=== PATIENT | male | born 1950 | race Asian ===

== ENCOUNTER → 2017-03-28 | Outpatient (CLI) | payer MEDICARE, OTHER | END | disposition home or self-care (01) | LOC: RADPV 11:28 | PROVIDERS: ATTEND Internal Medicine Nephrology | DX: Z01.89 Encounter for other specified special examinations (principal); I70.0 Atherosclerosis of aorta | CPT/HCPCS: 71020 ==

== ENCOUNTER 2017-05-24 08:12 | Emergency (ER) | payer MEDICARE, OTHER ==
[~2017-05-24] VITALS: Ht 165.1 cm; Wt 58.6 kg
[2017-05-24] MEDS ORDERED: PRED20 PO (08:23)
[2017-05-24] MEDS ORDERED: ASPI81 PO (08:23)
[2017-05-24] MEDS ORDERED: DOXA2TAB PO (08:23)
[2017-05-24] MEDS ORDERED: RANO500T3 PO (08:23)
[2017-05-24] MEDS ORDERED: ALLO100T PO (08:23)
[2017-05-24] MEDS ORDERED: HYDR10TA31 PO (08:23)
[2017-05-24] MEDS ORDERED: AMLO-512 PO (08:23)
[2017-05-24] MEDS ORDERED: OMEP20 PO (08:23)
[2017-05-24] MEDS ORDERED: ATEN100T PO (08:23)
[2017-05-24] MEDS ORDERED: ATOR40TA28 PO (08:23)
[2017-05-24] MEDS ORDERED: VITAD1000 PO (08:23)
[2017-05-24 08:27] LABS: GLUCOSE,POINT OF CARE 127 MG/DL (70-110)
[2017-05-24 09:38] LABS: BASOPHILS # (AUTO) 0.01 K/uL (0.00-0.20); BASOPHILS % (AUTO) 0.1 % (0.0-2.0); EOSINOPHILS # (AUTO) 0.01 K/uL (0.00-0.70); EOSINOPHILS % (AUTO) 0.11 % (1.0-6.0); HEMATOCRIT 30.7 % (41-53); HEMOGLOBIN 10.1 g/dL (13.5-17.5); LYMPHOCYTES # (AUTO) 0.8 K/uL (1.0-4.8); MEAN CORPUSCULAR HEMOGLOBIN 33.6 pg (26.0-34.0); MEAN CORPUSCULAR HGB CONC 32.9 G/dL (31.0-37.0); MEAN CORPUSCULAR VOLUME 102 fL (80-100); MONOCYTES # (AUTO) 0.3 K/uL (0.1-1.0); NEUTROPHILS # (AUTO) 8.5 K/uL (1.8-7.7); PLATELET COUNT (AUTO) 96 K/uL (150-450); RED BLOOD CELL COUNT(AUTO) 3.01 MIL/uL (4.50-5.90); RED CELL DISTRIBUTION WIDTH 19.1 % (11.5-14.5)
[2017-05-24 09:39] LABS: NEUTROPHILS % (AUTO) 88.8 % (40.0-70.0)
[2017-05-24] MEDS ORDERED: ACETAMINOPHEN 500 MG TABLET PO ONE (09:45)
[2017-05-24 09:48] LABS: CALCIUM, TOTAL 8.4 mg/dL (8.8-10.5); CREATININE 2.69 mg/dL (0.60-1.30); POTASSIUM 4.9 mmol/L (3.5-5.1)
[2017-05-24 09:49] LABS: PROTHROMBIN TIME 10.3 SEC (9.4-11.6)
[2017-05-24 09:56] LABS: ALBUMIN 2.8 g/dL (3.4-5.0); BILIRUBIN,TOTAL 0.5 mg/dL (0.1-1.0); TOTAL PROTEIN, SERUM 5.6 g/dL (6.4-8.2)
[2017-05-24 10:13] LABS: BILIRUBIN,URINE NEGATIVE (NEGATIVE); GLUCOSE, URINE (UA) NEGATIVE (NEGATIVE); KETONES,URINE NEGATIVE (NEGATIVE); LEUKOCYTE ESTERASE ,URINE TRACE (NEGATIVE); NITRATE,URINE NEGATIVE (NEGATIVE); OCCULT BLOOD,URINE NEGATIVE (NEGATIVE); PH,URINE 5.5 (5.0-8.0); PROTEIN,URINE SEE CONFIRM (NEGATIVE); UROBILINOGEN,URINE 0.2 mg/dL (<=1.0)
[2017-05-24 10:16] LABS: APPEARANCE,URINE HAZY (CLEAR)
[2017-05-24 10:17] LABS: BACTERIA,URINE Few /HPF (None Seen); RBC,URINE None Seen /HPF (0-2); SULFOSALICYLIC ACID,URINE 3+ (Negative)
[2017-05-24 10:18] LABS: SQUAMOUS EPITHELIAL CELL,UR Rare /LPF (None Seen)
[2017-05-24] MEDS ORDERED: CIPROFLOXACIN HCL 250 MG TABLET PO ONE (12:45)
[2017-05-24 13:53] VITALS: BP 168/75
[2017-08-11] MEDS ORDERED: CEFX1I IM (16:15)
[2017-08-11] MEDS ORDERED: DSS100 PO (16:16)
[2017-08-11] MEDS ORDERED: LEVE250T55 PO (16:17)
[2017-08-11] MEDS ORDERED: LUBI24CA2 PO (16:17)
[2017-08-11] MEDS ORDERED: EPOE10I SQ (16:17)
[2017-08-11] MEDS ORDERED: FOLI1CAP2 PO (16:19)
== END 2017-05-24 13:56 | disposition home or self-care (01) ==
LOC: EMS 08:14
DX: S00.03XA Contusion of scalp, initial encounter (principal); S70.02XA Contusion of left hip, initial encounter; S40.812A Abrasion of left upper arm, initial encounter; N39.0 Urinary tract infection, site not specified; E11.9 Type 2 diabetes mellitus without complications; E78.00 Pure hypercholesterolemia, unspecified; I10 Essential (primary) hypertension; Z87.891 Personal history of nicotine dependence; W19.XXXA Unspecified fall, initial encounter; Y93.89 Activity, other specified; Y92.89 Other specified places as the place of occurrence of the external cause; Y99.8 Other external cause status
CPT/HCPCS: 70450; 73503; 82962; 87086; 93005; 99285

== ENCOUNTER → 2017-07-12 | Outpatient (CLI) | payer MEDICARE, OTHER ==
[~2017-07-12] MED LIST: ALLO100T PO; AMLO-512 PO; ASPI81 PO; ATEN100T PO; ATOR40TA28 PO; AZIT250T9 PO; BISA5TAB12 PO; CEFX1I IM; DIPH25 PO; DOXA2TAB PO; DSS100 PO; EPOE10I SQ; FERR-89 PO; FOLI0.8T22 PO; FOLI1CAP2 PO; HYDR-2924 PO; HYDR10TA31 PO; LEVE250T55 PO; LEVE500T53 PO; LUBI24CA2 PO; OMEP20 PO; PANT40TA25 PO; PRED20 PO; RANO500T3 PO; VITAD1000 PO
[2017-07-12 13:00] LABS: ABG A-A DIFF O2 32.5 mmHg (10-20.0); ABG BASE EXCESS -10.1 mmol/L (-2.0-3.0); ABG HCO3 17.9 mmol/L (22.0-26.0); ABG OXYHEMOGLOBIN 95.4 % (94.0-100.0); ABG PCO2 21 mmHg (35-45); ABG PH 7.439 (7.35-7.450); TEMPERATURE, FAHRENHEIT, BG 98.6 FAHREN (96.0-98.6)
[2017-07-12 13:01] LABS: ALLEN TEST, BLOOD GAS Positive
== END | disposition home or self-care (01) ==
LOC: RESP 12:30
PROVIDERS: ATTEND Internal Medicine Pulmonary Disease
DX: R06.00 Dyspnea, unspecified (principal)
CPT/HCPCS: 82805

== ENCOUNTER 2017-07-14 13:20 | Inpatient (IN) | payer MEDICARE, OTHER ==
[~2017-07-14] VITALS: Ht 165.1 cm; Wt 62.5 kg
[~2017-07-14 13:20] MED LIST changes: -AZIT250T9 PO; -BISA5TAB12 PO; -CEFX1I IM; -DIPH25 PO; -DSS100 PO; -EPOE10I SQ; -FERR-89 PO; -FOLI0.8T22 PO; -FOLI1CAP2 PO; -HYDR-2924 PO; -LEVE250T55 PO; -LEVE500T53 PO; -LUBI24CA2 PO; -PANT40TA25 PO
[2017-07-14] MEDS ORDERED: AZIT250T9 PO (13:49)
[2017-07-14 14:22] LABS: EOSINOPHILS % (AUTO) 0.05 % (1.0-6.0); HEMATOCRIT 35.7 % (41-53); HEMOGLOBIN 12.1 g/dL (13.5-17.5); LYMPHOCYTES # (AUTO) 0.5 K/uL (1.0-4.8); LYMPHOCYTES % (AUTO) 7.4 % (22.0-44.0); MEAN CORPUSCULAR HEMOGLOBIN 33.3 pg (26.0-34.0); MEAN CORPUSCULAR HGB CONC 33.8 G/dL (31.0-37.0); MEAN CORPUSCULAR VOLUME 98 fL (80-100); MONOCYTES # (AUTO) 0.2 K/uL (0.1-1.0); MONOCYTES % (AUTO) 2.4 % (2.0-9.0); NEUTROPHILS # (AUTO) 6.4 K/uL (1.8-7.7); PLATELET COUNT (AUTO) 127 K/uL (150-450); RED BLOOD CELL COUNT(AUTO) 3.62 MIL/uL (4.50-5.90); RED CELL DISTRIBUTION WIDTH 18.8 % (11.5-14.5); WHITE BLOOD COUNT (AUTO) 7.1 K/uL (4.5-11.0)
[2017-07-14 14:25] LABS: NEUTROPHILS % (AUTO) 90.1 % (40.0-70.0)
[2017-07-14 14:33] LABS: CALCIUM, TOTAL 8.4 mg/dL (8.8-10.5); CREATININE 3.44 mg/dL (0.60-1.30); POTASSIUM 5.5 mmol/L (3.5-5.1)
[2017-07-14 14:39] LABS: RBC MORPHOLOGY COMMENT ABNORMAL RBC MORPH
[2017-07-14 14:41] LABS: ALBUMIN 3.2 g/dL (3.4-5.0); BILIRUBIN,TOTAL 0.5 mg/dL (0.1-1.0); TOTAL PROTEIN, SERUM 5.9 g/dL (6.4-8.2)
[2017-07-14] MEDS ORDERED: SODIUM PHOS/SODIUM BIPHOS 133 ML ENEMA PR ONE ×2 (17:45→19:15)
[2017-07-14] MEDS ORDERED: ACETAMINOPHEN 325 MG TABLET PO PRN (19:30)
[2017-07-14] MEDS ORDERED: ONDANSETRON HCL 4 MG/2 ML VIAL IVP PRN (19:30)
[2017-07-14] MEDS ORDERED: 0.9% SODIUM CHLORIDE 10 ML SYRINGE IVP PRN (19:30)
[2017-07-14 21:49] VITALS: BP 159/74
[2017-07-15] VITALS (7 sets, daily range): BP systolic 141–167; BP diastolic 58–71
[2017-07-15] MEDS ORDERED: MORPHINE SULFATE 2 MG/ML SYRINGE IVP PRN
[2017-07-15] MEDS ORDERED: HYDROCODONE/ACETAMINOPHEN 5-325 MG TABLET PO PRN
[2017-07-15] MEDS ORDERED: NITROGLYCERIN 0.4 MG SUBLINGUAL TABLET #25 SL PRN
[2017-07-15] MEDS ORDERED: LABETALOL HCL 5 MG/ML 20 ML VIAL IVP PRN
[2017-07-15] MEDS ORDERED: ALBUTEROL SULFATE 2.5 MG/0.5 ML NEB SOLUTION NEB PRN
[2017-07-15] MEDS ORDERED: IPRATROPIUM BROMIDE 0.5 MG/2.5 ML NEB SOLUTION NEB PRN
[2017-07-15] MEDS ORDERED: ONDANSETRON HCL 4 MG/2 ML VIAL IVP PRN
[2017-07-15] MEDS ORDERED: ZOLPIDEM TARTRATE 5 MG TABLET PO PRN
[2017-07-15] MEDS ORDERED: MAGNESIUM HYDROXIDE SUSPENSION 30 ML UDCUP PO PRN
[2017-07-15] MEDS ORDERED: ACETAMINOPHEN 325 MG TABLET PO PRN
[2017-07-15] MEDS: HEPARIN SODIUM,PORCINE 5,000 UNITS/ML VIAL SQ SCH ×3 (00:31→20:49)
[2017-07-15] MEDS ORDERED: SODIUM BICARBONATE 75 MEQ in SODIUM CHLORIDE 0.45% 1,000 ML IV ONE (07:45)
[2017-07-15] MEDS: HydrALAZINE HCL 50 MG TABLET PO SCH ×3 (09:30→20:48)
[2017-07-15] MEDS: PANTOPRAZOLE SODIUM 40 MG DR TABLET PO SCH (09:31)
[2017-07-15] MEDS: RANOLAZINE 500 MG SR TABLET PO SCH ×2 (09:31→20:48)
[2017-07-15] MEDS: ASPIRIN 81 MG CHEWABLE TABLET PO SCH (09:31)
[2017-07-15] MEDS: ALLOPURINOL 300 MG TABLET PO SCH (09:32)
[2017-07-15] MEDS: CHOLECALCIFEROL (VIT D3) 1,000 UNITS TABLET PO SCH (09:33)
[2017-07-15] MEDS ORDERED: SODIUM POLYSTYRENE SULFONATE 15 GM/60 ML SUSPENSION BOTTLE PO ONE (11:30)
[2017-07-15 16:21] LABS: INFLUENZA TYPE B NEGATIVE FOR TYPE B (NEGATIVE)
[2017-07-15] MEDS: DOXAZOSIN MESYLATE 2 MG TABLET PO SCH (20:48)
[2017-07-15] MEDS: ATENOLOL 100 MG TABLET PO SCH (20:48)
[2017-07-15] MEDS: ATORVASTATIN CALCIUM 40 MG TABLET PO SCH (20:49)
[2017-07-16 05:03] VITALS: BP 169/57
[2017-07-16 08:33] VITALS: BP 141/64
[2017-07-16 08:35] LABS: CALCIUM, TOTAL 7.5 mg/dL (8.8-10.5); CREATININE 2.86 mg/dL (0.60-1.30); PHOSPHORUS 4.4 mg/dL (2.5-4.9); POTASSIUM 3.1 mmol/L (3.5-5.1)
[2017-07-16] MEDS: ASPIRIN 81 MG CHEWABLE TABLET PO SCH (08:56)
[2017-07-16] MEDS: PANTOPRAZOLE SODIUM 40 MG DR TABLET PO SCH (08:57)
[2017-07-16] MEDS: ALLOPURINOL 300 MG TABLET PO SCH (08:57)
[2017-07-16] MEDS: HydrALAZINE HCL 50 MG TABLET PO SCH ×3 (08:57→20:23)
[2017-07-16] MEDS: CHOLECALCIFEROL (VIT D3) 1,000 UNITS TABLET PO SCH (08:57)
[2017-07-16] MEDS: HEPARIN SODIUM,PORCINE 5,000 UNITS/ML VIAL SQ SCH ×2 (08:58→20:22)
[2017-07-16] MEDS: RANOLAZINE 500 MG SR TABLET PO SCH ×2 (08:58→20:22)
[2017-07-16] MEDS ORDERED: POTASSIUM CHLORIDE 20 MEQ ER TABLET PO ONE (10:30)
[2017-07-16] MEDS ORDERED: SODIUM BICARBONATE 75 MEQ in SODIUM CHLORIDE 0.45% 1,000 ML IV ONE (11:00)
[2017-07-16 11:10] VITALS: BP 137/45
[2017-07-16 15:23] VITALS: BP 142/69
[2017-07-16] MEDS: ATORVASTATIN CALCIUM 40 MG TABLET PO SCH (20:22)
[2017-07-16] MEDS: DOXAZOSIN MESYLATE 2 MG TABLET PO SCH (20:23)
[2017-07-16] MEDS: ATENOLOL 100 MG TABLET PO SCH (20:26)
[2017-07-16 20:31] VITALS: BP 144/69
[2017-07-17 00:11] VITALS: BP 151/54
[2017-07-17 04:09] VITALS: BP 138/56
[2017-07-17 07:39] LABS: BASOPHILS % (AUTO) 0.5 % (0.0-2.0); EOSINOPHILS % (AUTO) 1.2 % (1.0-6.0); HEMATOCRIT 31.5 % (41-53); HEMOGLOBIN 10.6 g/dL (13.5-17.5); LYMPHOCYTES # (AUTO) 1.2 K/uL (1.0-4.8); LYMPHOCYTES % (AUTO) 18.9 % (22.0-44.0); MEAN CORPUSCULAR HEMOGLOBIN 33.9 pg (26.0-34.0); MEAN CORPUSCULAR HGB CONC 33.8 G/dL (31.0-37.0); MEAN CORPUSCULAR VOLUME 100 fL (80-100); MONOCYTES # (AUTO) 0.7 K/uL (0.1-1.0); MONOCYTES % (AUTO) 10.4 % (2.0-9.0); NEUTROPHILS # (AUTO) 4.3 K/uL (1.8-7.7); PLATELET COUNT (AUTO) 102 K/uL (150-450); RED BLOOD CELL COUNT(AUTO) 3.14 MIL/uL (4.50-5.90); RED CELL DISTRIBUTION WIDTH 18.5 % (11.5-14.5); WHITE BLOOD COUNT (AUTO) 6.3 K/uL (4.5-11.0)
[2017-07-17 07:54] LABS: CALCIUM, TOTAL 7.6 mg/dL (8.8-10.5); CREATININE 2.84 mg/dL (0.60-1.30); PHOSPHORUS 2.8 mg/dL (2.5-4.9); POTASSIUM 3.3 mmol/L (3.5-5.1)
[2017-07-17 08:41] VITALS: BP 145/59
[2017-07-17] MEDS: RANOLAZINE 500 MG SR TABLET PO SCH (08:54)
[2017-07-17] MEDS: ASPIRIN 81 MG CHEWABLE TABLET PO SCH (08:54)
[2017-07-17] MEDS: CHOLECALCIFEROL (VIT D3) 1,000 UNITS TABLET PO SCH (08:55)
[2017-07-17] MEDS: HEPARIN SODIUM,PORCINE 5,000 UNITS/ML VIAL SQ SCH (08:55)
[2017-07-17] MEDS: HydrALAZINE HCL 50 MG TABLET PO SCH (09:00)
[2017-07-17] MEDS: ALLOPURINOL 300 MG TABLET PO SCH (09:01)
[2017-07-17 11:24] LABS: RBC MORPHOLOGY COMMENT ABNORMAL RBC MORPH
[2017-08-11] MEDS ORDERED: CEFX1I IM (16:15)
[2017-08-11] MEDS ORDERED: DSS100 PO (16:16)
[2017-08-11] MEDS ORDERED: LUBI24CA2 PO (16:17)
[2017-08-11] MEDS ORDERED: EPOE10I SQ (16:17)
[2017-08-11] MEDS ORDERED: LEVE250T55 PO (16:17)
[2017-08-11] MEDS ORDERED: FOLI1CAP2 PO (16:19)
== END 2017-07-17 11:15 | disposition home or self-care (01) | DRG 683 ==
LOC: EMS 13:20 → 5S 19:55
PROVIDERS: ADMIT Hospitalist; ATTEND Hospitalist
DX: N17.9 Acute kidney failure, unspecified (principal); E87.1 Hypo-osmolality and hyponatremia; E11.22 Type 2 diabetes mellitus with diabetic chronic kidney disease; I69.354 Hemiplegia and hemiparesis following cerebral infarction affecting left non-dominant side; I25.110 Atherosclerotic heart disease of native coronary artery with unstable angina pectoris; N18.4 Chronic kidney disease, stage 4 (severe); E11.65 Type 2 diabetes mellitus with hyperglycemia; E55.9 Vitamin D deficiency, unspecified; E78.5 Hyperlipidemia, unspecified; I12.9 Hypertensive chronic kidney disease with stage 1 through stage 4 chronic kidney disease, or unspecified chronic kidney disease; K59.00 Constipation, unspecified; M10.9 Gout, unspecified; F10.10 Alcohol abuse, uncomplicated; E87.6 Hypokalemia; J32.9 Chronic sinusitis, unspecified; R80.9 Proteinuria, unspecified; Z95.5 Presence of coronary angioplasty implant and graft; Z87.891 Personal history of nicotine dependence; Z99.3 Dependence on wheelchair; Z79.82 Long term (current) use of aspirin; Z79.899 Other long term (current) drug therapy
CPT/HCPCS: 70450; 74000; 76700; 80307; 82575; 83970; 84100; 87804; 93005; 93306; 93971; 99285; J1644; J3490

== ENCOUNTER → 2017-07-19 | Outpatient (CLI) | payer MEDICARE, OTHER ==
[~2017-07-19] MED LIST changes: -AMLO-512 PO; +BISA5TAB12 PO; +CEFX1I IM; +DIPH25 PO; +DSS100 PO; +EPOE10I SQ; +FERR-89 PO; +FOLI0.8T22 PO; +FOLI1CAP2 PO; +HYDR-2924 PO; +LEVE250T55 PO; +LEVE500T53 PO; +LUBI24CA2 PO; +MAA ALBUMIN AGGREGATED TC99M/UD<10MCL ISOTOPE 1 EA INJ INJ ONE; +PANT40TA25 PO; +PENTETATE DTPA TC99M/MCL ISOTOPE 1 EA INJ INJ ONE; -PRED20 PO
== END | disposition home or self-care (01) ==
LOC: RADMN 09:41
PROVIDERS: ATTEND Internal Medicine Pulmonary Disease
DX: R06.09 Other forms of dyspnea (principal)
CPT/HCPCS: 78582; A9539; A9540

== ENCOUNTER 2017-07-29 22:33 | Emergency (ER) | payer MEDICARE, OTHER ==
[~2017-07-29] VITALS: Ht 167.6 cm; Wt 59.1 kg
[~2017-07-29 22:33] MED LIST changes: -BISA5TAB12 PO; -CEFX1I IM; -DIPH25 PO; -DSS100 PO; -EPOE10I SQ; -FERR-89 PO; -FOLI0.8T22 PO; -FOLI1CAP2 PO; -HYDR-2924 PO; -LEVE250T55 PO; -LEVE500T53 PO; -LUBI24CA2 PO; -MAA ALBUMIN AGGREGATED TC99M/UD<10MCL ISOTOPE 1 EA INJ INJ ONE; -PANT40TA25 PO; -PENTETATE DTPA TC99M/MCL ISOTOPE 1 EA INJ INJ ONE
[2017-07-29 23:08] LABS: GLUCOSE,POINT OF CARE 119 MG/DL (70-110)
[2017-07-30 00:41] LABS: BASOPHILS % (AUTO) 0.1 % (0.0-2.0); EOSINOPHILS % (AUTO) 0.3 % (1.0-6.0); HEMATOCRIT 32.8 % (41-53); HEMOGLOBIN 11.2 g/dL (13.5-17.5); LYMPHOCYTES # (AUTO) 1.3 K/uL (1.0-4.8); LYMPHOCYTES % (AUTO) 28.5 % (22.0-44.0); MEAN CORPUSCULAR HEMOGLOBIN 33.7 pg (26.0-34.0); MEAN CORPUSCULAR VOLUME 99 fL (80-100); MONOCYTES # (AUTO) 0.7 K/uL (0.1-1.0); MONOCYTES % (AUTO) 15.8 % (2.0-9.0); NEUTROPHILS # (AUTO) 2.5 K/uL (1.8-7.7); NEUTROPHILS % (AUTO) 55.3 % (40.0-70.0); PLATELET COUNT (AUTO) 193 K/uL (150-450); RED BLOOD CELL COUNT(AUTO) 3.32 MIL/uL (4.50-5.90)
[2017-07-30 00:51] LABS: ANION GAP 10 mmol/L (8-16); CALCIUM, TOTAL 9.2 mg/dL (8.8-10.5); CARBON DIOXIDE 28 mmol/L (22-29); CHLORIDE 93 mmol/L (98-107); CREATININE 3.67 mg/dL (0.60-1.30); GLOMERULAR FILTR. RATE CALC 17 mL/min (>60); GLUCOSE,RANDOM 110 mg/dL (70-110); SODIUM SERUM 131 mmol/L (136-145); UREA NITROGEN, BLOOD 44 mg/dL (7-18)
[2017-07-30 00:57] LABS: ALANINE AMINOTRANSFERASE 37 U/L (12-78); ALBUMIN 2.8 g/dL (3.4-5.0); ALKALINE PHOSPHATASE 116 U/L (46-116); ASPARTATE AMINOTRANSFERASE 58 U/L (15-37); BILIRUBIN,TOTAL 0.7 mg/dL (0.1-1.0); TOTAL PROTEIN, SERUM 6.6 g/dL (6.4-8.2)
[2017-07-30 01:02] LABS: AMMONIA < 10 umol/L (11-32); TROPONIN I < 0.02 ng/mL (0.00-0.05)
[2017-07-30 01:07] LABS: B-TYPE NATRIURETIC PEPTIDE 275 pg/mL (0-100)
[2017-07-30 02:32] LABS: APPEARANCE,URINE CLEAR (CLEAR); BILIRUBIN,URINE NEGATIVE (NEGATIVE); GLUCOSE, URINE (UA) NEGATIVE (NEGATIVE); KETONES,URINE NEGATIVE (NEGATIVE); LEUKOCYTE ESTERASE ,URINE NEGATIVE (NEGATIVE); NITRATE,URINE NEGATIVE (NEGATIVE); OCCULT BLOOD,URINE TRACE (NEGATIVE); PH,URINE 7.5 (5.0-8.0); PROTEIN,URINE POS 1+ (NEGATIVE); UROBILINOGEN,URINE 0.2 mg/dL (<=1.0)
[2017-07-30 02:54] LABS: BACTERIA,URINE None Seen /HPF (None Seen); RBC,URINE 0-2 /HPF (0-2); WBC,URINE None Seen /HPF (0-5)
[2017-07-30 04:40] VITALS: BP 145/69
[2017-07-30] MEDS ORDERED: HYDR-2924 PO (14:25)
[2017-08-11] MEDS ORDERED: CEFX1I IM (16:15)
[2017-08-11] MEDS ORDERED: DSS100 PO (16:16)
[2017-08-11] MEDS ORDERED: LUBI24CA2 PO (16:17)
[2017-08-11] MEDS ORDERED: EPOE10I SQ (16:17)
[2017-08-11] MEDS ORDERED: LEVE250T55 PO (16:17)
[2017-08-11] MEDS ORDERED: FOLI1CAP2 PO (16:19)
== END 2017-07-30 05:56 | disposition home or self-care (01) ==
LOC: EMS 22:36
DX: R56.9 Unspecified convulsions (principal); I25.10 Atherosclerotic heart disease of native coronary artery without angina pectoris; I12.0 Hypertensive chronic kidney disease with stage 5 chronic kidney disease or end stage renal disease; E11.22 Type 2 diabetes mellitus with diabetic chronic kidney disease; N18.6 End stage renal disease; E78.00 Pure hypercholesterolemia, unspecified; Z87.892 Personal history of anaphylaxis; Z99.2 Dependence on renal dialysis; Z79.82 Long term (current) use of aspirin
CPT/HCPCS: 36415; 80053; 81001; 82140; 82962; 83880; 84484; 85025; 93005; 99285; G0480

== ENCOUNTER 2017-07-30 09:21 | Inpatient (IN) | payer MEDICARE, OTHER ==
[~2017-07-30] VITALS: Ht 167.6 cm; Wt 57.4 kg
[2017-07-30 11:53] LABS: PROTHROMBIN TIME 10.5 SEC (9.4-11.6)
[2017-07-30 11:56] LABS: ANION GAP 12 mmol/L (8-16); BASOPHILS % (AUTO) 0.4 % (0.0-2.0); CALCIUM, TOTAL 9.1 mg/dL (8.8-10.5); CARBON DIOXIDE 26 mmol/L (22-29); CHLORIDE 92 mmol/L (98-107); CREATININE 3.87 mg/dL (0.60-1.30); EOSINOPHILS % (AUTO) 0 % (1.0-6.0); GLOMERULAR FILTR. RATE CALC 16 mL/min (>60); GLUCOSE,RANDOM 103 mg/dL (70-110); HEMATOCRIT 30.5 % (41-53); HEMOGLOBIN 10.3 g/dL (13.5-17.5); LYMPHOCYTES # (AUTO) 1.3 K/uL (1.0-4.8); LYMPHOCYTES % (AUTO) 29.8 % (22.0-44.0); MEAN CORPUSCULAR HEMOGLOBIN 33.1 pg (26.0-34.0); MEAN CORPUSCULAR HGB CONC 33.9 G/dL (31.0-37.0); MEAN CORPUSCULAR VOLUME 98 fL (80-100); MONOCYTES # (AUTO) 0.8 K/uL (0.1-1.0); MONOCYTES % (AUTO) 18.9 % (2.0-9.0); NEUTROPHILS # (AUTO) 2.2 K/uL (1.8-7.7); NEUTROPHILS % (AUTO) 50.9 % (40.0-70.0); PLATELET COUNT (AUTO) 146 K/uL (150-450); POTASSIUM 4.5 mmol/L (3.5-5.1); RED BLOOD CELL COUNT(AUTO) 3.12 MIL/uL (4.50-5.90); RED CELL DISTRIBUTION WIDTH 17.5 % (11.5-14.5); SODIUM SERUM 130 mmol/L (136-145); UREA NITROGEN, BLOOD 45 mg/dL (7-18)
[2017-07-30 12:06] LABS: TROPONIN I < 0.02 ng/mL (0.00-0.05)
[2017-07-30 12:08] LABS: B-TYPE NATRIURETIC PEPTIDE 307 pg/mL (0-100)
[2017-07-30 12:16] LABS: AMMONIA < 10 umol/L (11-32)
[2017-07-30 12:21] LABS: ALANINE AMINOTRANSFERASE 31 U/L (12-78); ALBUMIN 2.7 g/dL (3.4-5.0); ALKALINE PHOSPHATASE 103 U/L (46-116); ASPARTATE AMINOTRANSFERASE 50 U/L (15-37); BILIRUBIN,TOTAL 0.6 mg/dL (0.1-1.0); CREATINE KINASE MB 1.4 ng/mL (0-5); CREATINE KINASE, TOTAL 133 U/L (39-308); TOTAL PROTEIN, SERUM 6.2 g/dL (6.4-8.2)
[2017-07-30 13:25] LABS: APPEARANCE,URINE CLOUDY (CLEAR); BILIRUBIN,URINE NEGATIVE (NEGATIVE); GLUCOSE, URINE (UA) NEGATIVE (NEGATIVE); KETONES,URINE TRACE mg/dL (NEGATIVE); LEUKOCYTE ESTERASE ,URINE NEGATIVE (NEGATIVE); NITRATE,URINE NEGATIVE (NEGATIVE); OCCULT BLOOD,URINE LARGE (NEGATIVE); PH,URINE 7.5 (5.0-8.0); PROTEIN,URINE SEE CONFIRM (NEGATIVE); UROBILINOGEN,URINE 0.2 mg/dL (<=1.0)
[2017-07-30 13:41] LABS: BACTERIA,URINE None Seen /HPF (None Seen); RBC,URINE >100 /HPF (0-2); SULFOSALICYLIC ACID,URINE 2+ (Negative); WBC,URINE None Seen /HPF (0-5)
[2017-07-30] MEDS ORDERED: HYDR-2924 PO (14:25)
[2017-07-30] MEDS ORDERED: ACETAMINOPHEN 325 MG TABLET PO PRN (14:30)
[2017-07-30] MEDS ORDERED: 0.9% SODIUM CHLORIDE 10 ML SYRINGE IVP PRN (14:30)
[2017-07-30 16:00] VITALS: BP 142/94
[2017-07-30] MEDS: VITAMIN B COMP/VIT C/FOLIC ACID CAPSULE PO SCH (16:26)
[2017-07-30] MEDS ORDERED: ALBUMIN HUMAN 25%-12.5GM/50ML IV BOTTLE IV ONE (16:28)
[2017-07-30 17:32] VITALS: BP 126/63
[2017-07-30] MEDS ORDERED: HALOPERIDOL LACTATE 5 MG/ML VIAL IM PRN (17:45)
[2017-07-30 19:16] VITALS: BP 135/80
[2017-07-30] MEDS ORDERED: PIPERACILLIN SODIUM/TAZOBACTAM 0.75 GM in DEXTROSE 5%-WATER 50 ML IV PRN (21:45)
[2017-07-30] MEDS ORDERED: LORazepam 2 MG/ML VIAL IVP ONE ×2 (21:45→22:00)
[2017-07-30] MEDS ORDERED: VANCOMYCIN HCL 1 GM/D5% WATER 200 ML IV PRN (21:45)
[2017-07-30] MEDS ORDERED: VANCOMYCIN HCL 1.25 GM in DEXTROSE 5%-WATER 250 ML IV ONE (22:30)
[2017-07-30] MEDS: PIPERACILLIN SODIUM/TAZOBACTAM 2.25 GM in DEXTROSE 5%-WATER 50 ML IV SCH (23:10)
[2017-07-30 23:26] VITALS: BP 149/65
[2017-07-31] MEDS ORDERED: MAGNESIUM HYDROXIDE SUSPENSION 30 ML UDCUP PO PRN (00:30)
[2017-07-31] MEDS ORDERED: ACETAMINOPHEN 325 MG TABLET PO PRN (00:30)
[2017-07-31] MEDS ORDERED: OxyCODONE HCL/ACETAMINOPHEN 5-325 MG TABLET PO PRN ×2 (00:30)
[2017-07-31] MEDS ORDERED: 0.9% SODIUM CHLORIDE 10 ML SYRINGE IVP PRN (00:30)
[2017-07-31 01:37] LABS: INFLUENZA TYPE A NEGATIVE FOR TYPE A (NEGATIVE); INFLUENZA TYPE B NEGATIVE FOR TYPE B (NEGATIVE)
[2017-07-31] MEDS: LevETIRAcetam 500 MG TABLET PO SCH ×3 (01:52→21:35)
[2017-07-31] MEDS: RANOLAZINE 500 MG SR TABLET PO SCH ×3 (01:55→21:35)
[2017-07-31] MEDS: DOCUSATE SODIUM 100 MG CAPSULE PO SCH ×3 (01:55→21:35)
[2017-07-31 03:04] VITALS: BP 145/70
[2017-07-31 06:24] LABS: BASOPHILS % (AUTO) 0.2 % (0.0-2.0); EOSINOPHILS % (AUTO) 0.7 % (1.0-6.0); HEMATOCRIT 26.9 % (41-53); HEMOGLOBIN 9.2 g/dL (13.5-17.5); LYMPHOCYTES # (AUTO) 1.5 K/uL (1.0-4.8); LYMPHOCYTES % (AUTO) 32.5 % (22.0-44.0); MEAN CORPUSCULAR HEMOGLOBIN 33.6 pg (26.0-34.0); MEAN CORPUSCULAR HGB CONC 34.3 G/dL (31.0-37.0); MEAN CORPUSCULAR VOLUME 98 fL (80-100); MONOCYTES # (AUTO) 1.1 K/uL (0.1-1.0); MONOCYTES % (AUTO) 24.1 % (2.0-9.0); NEUTROPHILS % (AUTO) 42.5 % (40.0-70.0); PLATELET COUNT (AUTO) 170 K/uL (150-450); RED BLOOD CELL COUNT(AUTO) 2.75 MIL/uL (4.50-5.90); RED CELL DISTRIBUTION WIDTH 17.2 % (11.5-14.5)
[2017-07-31 06:42] LABS: ALBUMIN 2.5 g/dL (3.4-5.0); BILIRUBIN,TOTAL 0.6 mg/dL (0.1-1.0); CALCIUM, TOTAL 8.5 mg/dL (8.8-10.5); CREATININE 3.32 mg/dL (0.60-1.30); MAGNESIUM 1.9 mg/dL (1.80-2.40); PHOSPHORUS 4.8 mg/dL (2.5-4.9); POTASSIUM 4.5 mmol/L (3.5-5.1); TOTAL PROTEIN, SERUM 5.7 g/dL (6.4-8.2)
[2017-07-31 08:05] VITALS: BP 140/58
[2017-07-31] MEDS ORDERED: -POST HEMODIALYSIS NOTE- MISC SCH (09:00)
[2017-07-31 09:17] LABS: GLUCOSE,POINT OF CARE 90 MG/DL (70-110)
[2017-07-31 10:28] VITALS: BP 139/52
[2017-07-31] MEDS: ASPIRIN 81 MG CHEWABLE TABLET PO SCH (10:34)
[2017-07-31] MEDS: PANTOPRAZOLE SODIUM 40 MG/VIAL IVP SCH (10:34)
[2017-07-31] MEDS: VITAMIN B COMP/VIT C/FOLIC ACID CAPSULE PO SCH (10:34)
[2017-07-31] MEDS: HydrALAZINE HCL 50 MG TABLET PO SCH ×3 (10:36→21:00)
[2017-07-31 12:24] VITALS: BP 140/65
[2017-07-31 14:44] LABS: GLUCOSE,POINT OF CARE 103 MG/DL (70-110)
[2017-07-31 14:44] LABS: GLUCOMETER DEV NAME(LOC) 5N 1M; GLUCOSE,POINT OF CARE 130 MG/DL (70-110)
[2017-07-31] MEDS ORDERED: SODIUM CHLORIDE 0.9% 500 ML IV ONE (16:04)
[2017-07-31 16:14] VITALS: BP 139/60
[2017-07-31] MEDS: PIPERACILLIN SODIUM/TAZOBACTAM 2.25 GM in DEXTROSE 5%-WATER 50 ML IV SCH (16:27)
[2017-07-31 19:19] VITALS: BP 139/54
[2017-07-31] MEDS: ATORVASTATIN CALCIUM 40 MG TABLET PO SCH (21:35)
[2017-07-31] MEDS: ATENOLOL 100 MG TABLET PO SCH (21:36)
[2017-07-31] MEDS: DOXAZOSIN MESYLATE 2 MG TABLET PO SCH (21:36)
[2017-08-01] MEDS: PIPERACILLIN SODIUM/TAZOBACTAM 2.25 GM in DEXTROSE 5%-WATER 50 ML IV SCH ×3 (00:06→22:36)
[2017-08-01 04:10] VITALS: BP 156/60
[2017-08-01 06:11] LABS: HEMATOCRIT 27.8 % (41-53); HEMOGLOBIN 9.2 g/dL (13.5-17.5); MEAN CORPUSCULAR HEMOGLOBIN 32.9 pg (26.0-34.0); MEAN CORPUSCULAR HGB CONC 33.1 G/dL (31.0-37.0); MEAN CORPUSCULAR VOLUME 99 fL (80-100); PLATELET COUNT (AUTO) 164 K/uL (150-450); RED CELL DISTRIBUTION WIDTH 17.1 % (11.5-14.5)
[2017-08-01 06:19] LABS: CALCIUM, TOTAL 8.9 mg/dL (8.8-10.5); CREATININE 2.2 mg/dL (0.60-1.30); MAGNESIUM 1.6 mg/dL (1.80-2.40); PHOSPHORUS 3.2 mg/dL (2.5-4.9); POTASSIUM 3.7 mmol/L (3.5-5.1)
[2017-08-01 06:51] LABS: % IRON SATURATION 17.8 % (30-44)
[2017-08-01 07:52] VITALS: BP 171/63
[2017-08-01] MEDS ORDERED: MAGNESIUM OXIDE 400 MG TABLET PO ONE (09:30)
[2017-08-01] MEDS: SOD FERRIC GLUC COMPLX/SUCROSE 125 MG in SODIUM CHLORIDE 0.9% 100 ML IV SCH (09:40)
[2017-08-01] MEDS: RANOLAZINE 500 MG SR TABLET PO SCH ×2 (09:40→20:59)
[2017-08-01] MEDS: DOCUSATE SODIUM 100 MG CAPSULE PO SCH ×2 (09:40→21:01)
[2017-08-01] MEDS: LevETIRAcetam 500 MG TABLET PO SCH ×2 (09:41→21:00)
[2017-08-01] MEDS: HydrALAZINE HCL 50 MG TABLET PO SCH ×3 (09:41→21:00)
[2017-08-01] MEDS: ASPIRIN 81 MG CHEWABLE TABLET PO SCH (09:41)
[2017-08-01] MEDS: VITAMIN B COMP/VIT C/FOLIC ACID CAPSULE PO SCH (09:41)
[2017-08-01] MEDS: PANTOPRAZOLE SODIUM 40 MG/VIAL IVP SCH (09:41)
[2017-08-01] MEDS ORDERED: MAGNESIUM SULFATE 1 GM in DEXTROSE 5%-WATER 50 ML IV ONE (10:00)
[2017-08-01 10:36] LABS: BAND NEUTROPHILS % (MANUAL) 6 % (1-5); LYMPHOCYTES % (MANUAL) 39 % (22-44); SEGMENTED NEUTROPHILS % 55 % (40-70)
[2017-08-01 11:56] VITALS: BP 129/54
[2017-08-01 15:28] VITALS: BP 132/54
[2017-08-01 18:50] LABS: CREATININE 2.69 mg/dL (0.60-1.30)
[2017-08-01 20:22] VITALS: BP 135/57
[2017-08-01] MEDS: ATORVASTATIN CALCIUM 40 MG TABLET PO SCH (20:59)
[2017-08-01] MEDS: ATENOLOL 100 MG TABLET PO SCH (21:00)
[2017-08-01] MEDS: DOXAZOSIN MESYLATE 2 MG TABLET PO SCH (21:00)
[2017-08-01 23:54] VITALS: BP 127/58
[2017-08-02] VITALS (7 sets, daily range): BP systolic 117–154; BP diastolic 60–71
[2017-08-02 07:35] LABS: CALCIUM, TOTAL 8.8 mg/dL (8.8-10.5); CREATININE 2.77 mg/dL (0.60-1.30); MAGNESIUM 1.9 mg/dL (1.80-2.40); POTASSIUM 3.8 mmol/L (3.5-5.1); VANCOMYCIN,RANDOM 7.2 mcg/mL (25.0-50.0)
[2017-08-02] MEDS ORDERED: VANCOMYCIN HCL 1 GM/D5% WATER 200 ML IV ONE (08:15)
[2017-08-02] MEDS ORDERED: EPOETIN ALFA 10,000 UNITS/ML VIAL SQ SCH (09:00)
[2017-08-02] MEDS: PANTOPRAZOLE SODIUM 40 MG/VIAL IVP SCH (09:23)
[2017-08-02] MEDS: RANOLAZINE 500 MG SR TABLET PO SCH ×2 (09:24→21:20)
[2017-08-02] MEDS: ASPIRIN 81 MG CHEWABLE TABLET PO SCH (09:24)
[2017-08-02] MEDS: HydrALAZINE HCL 50 MG TABLET PO SCH ×3 (09:24→21:00)
[2017-08-02] MEDS: LevETIRAcetam 500 MG TABLET PO SCH ×2 (09:24→21:19)
[2017-08-02] MEDS: DOCUSATE SODIUM 100 MG CAPSULE PO SCH ×2 (09:24→21:19)
[2017-08-02] MEDS: VITAMIN B COMP/VIT C/FOLIC ACID CAPSULE PO SCH (09:25)
[2017-08-02] MEDS: PIPERACILLIN SODIUM/TAZOBACTAM 2.25 GM in DEXTROSE 5%-WATER 50 ML IV SCH ×2 (12:16→21:21)
[2017-08-02] MEDS: SOD FERRIC GLUC COMPLX/SUCROSE 125 MG in SODIUM CHLORIDE 0.9% 100 ML IV SCH (12:55)
[2017-08-02] MEDS ORDERED: LIDOCAINE HCL/PF 1% 30 ML VIAL ONE (15:40)
[2017-08-02] MEDS ORDERED: HEPARIN SODIUM 1000 UNITS/NS 500 ML ONE (15:40)
[2017-08-02] MEDS ORDERED: IOHEXOL 240 MG/ML 50 ML VIAL ONE (15:46)
[2017-08-02] MEDS ORDERED: SODIUM CHLORIDE 0.9% 500 ML IV ONE (15:59)
[2017-08-02] MEDS ORDERED: HEPARIN SODIUM,PORCINE 1,000 UNITS/ML 10 ML VIAL ONE ×2 (16:22→16:33)
[2017-08-02] MEDS ORDERED: FentaNYL CITRATE-PF 100 MCG/2 ML VIAL ONE (16:26)
[2017-08-02] MEDS ORDERED: MIDAZOLAM HCL 2 MG/2 ML VIAL ONE (16:26)
[2017-08-02] MEDS ORDERED: ALTEPLASE 2 MG/VIAL IVCATH ONE (16:30)
[2017-08-02] MEDS ORDERED: MIDAZOLAM HCL 2 MG/2 ML VIAL IVP ONE (17:01)
[2017-08-02] MEDS ORDERED: FentaNYL CITRATE-PF 100 MCG/2 ML VIAL IVP ONE (17:01)
[2017-08-02] MEDS: ATENOLOL 100 MG TABLET PO SCH (21:00)
[2017-08-02] MEDS: DOXAZOSIN MESYLATE 2 MG TABLET PO SCH (21:00)
[2017-08-02] MEDS: ATORVASTATIN CALCIUM 40 MG TABLET PO SCH (21:19)
[2017-08-03 06:18] VITALS: BP 157/75
[2017-08-03 07:01] LABS: CREATININE 2.79 mg/dL (0.60-1.30); MAGNESIUM 1.8 mg/dL (1.80-2.40); PHOSPHORUS 4.4 mg/dL (2.5-4.9)
[2017-08-03 07:36] VITALS: BP 147/64
[2017-08-03] MEDS: ASPIRIN 81 MG CHEWABLE TABLET PO SCH (08:48)
[2017-08-03] MEDS: PANTOPRAZOLE SODIUM 40 MG/VIAL IVP SCH (08:48)
[2017-08-03] MEDS: VITAMIN B COMP/VIT C/FOLIC ACID CAPSULE PO SCH (08:49)
[2017-08-03] MEDS: RANOLAZINE 500 MG SR TABLET PO SCH ×2 (08:49→20:02)
[2017-08-03] MEDS: DOCUSATE SODIUM 100 MG CAPSULE PO SCH ×2 (08:49→20:04)
[2017-08-03] MEDS: LevETIRAcetam 500 MG TABLET PO SCH ×2 (08:49→20:04)
[2017-08-03] MEDS: HydrALAZINE HCL 50 MG TABLET PO SCH (09:00)
[2017-08-03] MEDS: SOD FERRIC GLUC COMPLX/SUCROSE 125 MG in SODIUM CHLORIDE 0.9% 100 ML IV SCH (09:16)
[2017-08-03] MEDS: PIPERACILLIN SODIUM/TAZOBACTAM 2.25 GM in DEXTROSE 5%-WATER 50 ML IV SCH ×2 (10:58→20:12)
[2017-08-03 11:21] VITALS: BP 149/58
[2017-08-03] MEDS ORDERED: SODIUM CHLORIDE 0.9% 2,000 ML IV ONE (14:48)
[2017-08-03 17:33] VITALS: BP 137/75
[2017-08-03 19:43] VITALS: BP 146/64
[2017-08-03] MEDS: ATENOLOL 100 MG TABLET PO SCH (20:02)
[2017-08-03] MEDS: ATORVASTATIN CALCIUM 40 MG TABLET PO SCH (20:03)
[2017-08-03] MEDS: DOXAZOSIN MESYLATE 2 MG TABLET PO SCH (20:03)
[2017-08-11] MEDS ORDERED: CEFX1I IM (16:15)
[2017-08-11] MEDS ORDERED: DSS100 PO (16:16)
[2017-08-11] MEDS ORDERED: LEVE250T55 PO (16:17)
[2017-08-11] MEDS ORDERED: EPOE10I SQ (16:17)
[2017-08-11] MEDS ORDERED: LUBI24CA2 PO (16:17)
[2017-08-11] MEDS ORDERED: FOLI1CAP2 PO (16:19)
== END 2017-08-03 20:49 | DRG 673 ==
LOC: EMS 09:23 → AHU 16:20 → UNDOADMIN 16:20 → 5N 07-31 09:19
PROVIDERS: ADMIT Internal Medicine; ATTEND Internal Medicine
PROC: 5A1D70Z Performance of Urinary Filtration, Intermittent, Less than 6 Hours Per Day (ICD-10-PCS; 2017-07-30)
PROC: 5A1D70Z Performance of Urinary Filtration, Intermittent, Less than 6 Hours Per Day (ICD-10-PCS; 2017-07-31)
PROC: 05CY3ZZ Extirpation of Matter from Upper Vein, Percutaneous Approach (ICD-10-PCS; principal; 2017-08-02)
PROC: 03783ZZ Dilation of Left Brachial Artery, Percutaneous Approach (ICD-10-PCS; 2017-08-02)
PROC: 3E03317 Introduction of Other Thrombolytic into Peripheral Vein, Percutaneous Approach (ICD-10-PCS; 2017-08-02)
PROC: 5A1D70Z Performance of Urinary Filtration, Intermittent, Less than 6 Hours Per Day (ICD-10-PCS; 2017-08-03)
DX: N17.9 Acute kidney failure, unspecified (principal); G93.41 Metabolic encephalopathy; T82.868A Thrombosis due to vascular prosthetic devices, implants and grafts, initial encounter; E43 Unspecified severe protein-calorie malnutrition; R56.9 Unspecified convulsions; E11.22 Type 2 diabetes mellitus with diabetic chronic kidney disease; I12.0 Hypertensive chronic kidney disease with stage 5 chronic kidney disease or end stage renal disease; E87.1 Hypo-osmolality and hyponatremia; N18.6 End stage renal disease; E11.65 Type 2 diabetes mellitus with hyperglycemia; Z86.73 Personal history of transient ischemic attack (TIA), and cerebral infarction without residual deficits; E55.9 Vitamin D deficiency, unspecified; E78.5 Hyperlipidemia, unspecified; E78.00 Pure hypercholesterolemia, unspecified; Y83.2 Surgical operation with anastomosis, bypass or graft as the cause of abnormal reaction of the patient, or of later complication, without mention of misadventure at the time of the procedure; I25.10 Atherosclerotic heart disease of native coronary artery without angina pectoris; M10.9 Gout, unspecified; Z79.899 Other long term (current) drug therapy; Z79.82 Long term (current) use of aspirin; Z87.891 Personal history of nicotine dependence; Z68.20 Body mass index [BMI] 20.0-20.9, adult; Y92.89 Other specified places as the place of occurrence of the external cause
CPT/HCPCS: 36245; 36870; 70450; 70551; 76937; 82565; 82962; 83540; 83550; 83735; 83970; 84100; 84520; 85651; 86140; 86706; 87040; 87340; 87804; 90935; 93005; 95816; 96372; 99285; C9113; J0885; J1630; J1644; J2060; J2250; J2543; J2916; J2997; J3010; J3370; J3475; J3490; J7030; J7040; J7050; J7060; P9047; Q9966

== ENCOUNTER 2017-08-21 02:09 | Inpatient (IN) | payer MEDICARE, OTHER ==
[~2017-08-21] VITALS: Ht 167.6 cm; Wt 57.0 kg
[~2017-08-21 02:09] MED LIST changes: +CEFX1I IM; +DSS100 PO; +EPOE10I SQ; +FOLI1CAP2 PO; -HYDR10TA31 PO; +LEVE250T55 PO; +LUBI24CA2 PO
[2017-08-21] MEDS ORDERED: PANT40TA25 PO (02:21)
[2017-08-21] MEDS ORDERED: DIPH25 PO (02:21)
[2017-08-21] MEDS ORDERED: BISA5TAB12 PO (02:21)
[2017-08-21] MEDS ORDERED: FERR-89 PO (02:21)
[2017-08-21] MEDS ORDERED: FOLI0.8T22 PO (02:21)
[2017-08-21 03:03] LABS: BASOPHILS # (AUTO) 0.05 K/uL (0.00-0.20); BASOPHILS % (AUTO) 0.5 % (0.0-2.0); EOSINOPHILS % (AUTO) 1.02 % (1.0-6.0); HEMATOCRIT 26.1 % (41-53); HEMOGLOBIN 8.5 g/dL (13.5-17.5); LYMPHOCYTES # (AUTO) 2.2 K/uL (1.0-4.8); LYMPHOCYTES % (AUTO) 23.9 % (22.0-44.0); MEAN CORPUSCULAR HEMOGLOBIN 32.7 pg (26.0-34.0); MEAN CORPUSCULAR HGB CONC 32.6 G/dL (31.0-37.0); MEAN CORPUSCULAR VOLUME 100 fL (80-100); MONOCYTES # (AUTO) 1.1 K/uL (0.1-1.0); NEUTROPHILS # (AUTO) 5.9 K/uL (1.8-7.7); NEUTROPHILS % (AUTO) 62.6 % (40.0-70.0); PLATELET COUNT (AUTO) 255 K/uL (150-450); RED CELL DISTRIBUTION WIDTH 19.8 % (11.5-14.5)
[2017-08-21 03:13] LABS: CALCIUM, TOTAL 8.9 mg/dL (8.8-10.5); CREATININE 3.45 mg/dL (0.60-1.30); POTASSIUM 4.4 mmol/L (3.5-5.1)
[2017-08-21 03:19] LABS: ALBUMIN 2.2 g/dL (3.4-5.0); BILIRUBIN,TOTAL 0.4 mg/dL (0.1-1.0); TOTAL PROTEIN, SERUM 5.9 g/dL (6.4-8.2)
[2017-08-21 03:22] LABS: LACTIC ACID 1.3 mmol/L (0.4-2.0)
[2017-08-21] MEDS ORDERED: PIPERACILLIN/TAZO 3.375 GM/D5W 50 ML IV ONE (05:00)
[2017-08-21] MEDS ORDERED: ACETAMINOPHEN 650 MG RECTAL SUPPOSITORY PR ONE (05:15)
[2017-08-21] MEDS ORDERED: SODIUM CHLORIDE 0.9% 250 ML IV ONE (05:15)
[2017-08-21 05:16] LABS: GLUCOSE, URINE (UA) NEGATIVE (NEGATIVE); KETONES,URINE TRACE mg/dL (NEGATIVE); LEUKOCYTE ESTERASE ,URINE SMALL (NEGATIVE); NITRATE,URINE POSITIVE (NEGATIVE); OCCULT BLOOD,URINE NEGATIVE (NEGATIVE); PROTEIN,URINE SEE CONFIRM (NEGATIVE)
[2017-08-21 05:22] LABS: APPEARANCE,URINE HAZY (CLEAR); BILIRUBIN,URINE PRELIM. POSITIVE (NEGATIVE)
[2017-08-21 05:24] LABS: RBC,URINE 0-2 /HPF (0-2); SULFOSALICYLIC ACID,URINE 1+ (Negative)
[2017-08-21 05:25] LABS: BACTERIA,URINE Moderate /HPF (None Seen)
[2017-08-21 05:26] LABS: HYALINE CASTS, URINE 0-2 /LPF (None Seen)
[2017-08-21 05:57] LABS: INFLUENZA TYPE A NEGATIVE FOR TYPE A (NEGATIVE); INFLUENZA TYPE B NEGATIVE FOR TYPE B (NEGATIVE)
[2017-08-21] MEDS ORDERED: ONDANSETRON HCL 4 MG/2 ML VIAL IVP PRN (06:00)
[2017-08-21] MEDS ORDERED: 0.9% SODIUM CHLORIDE 10 ML SYRINGE IVP PRN (06:00)
[2017-08-21] MEDS ORDERED: ACETAMINOPHEN 325 MG TABLET PO PRN (06:00)
[2017-08-21 11:28] VITALS: BP 125/54
[2017-08-21] MEDS ORDERED: LEVE500T53 PO (14:42)
[2017-08-21] MEDS ORDERED: BISACODYL 5 MG EC TABLET PO PRN (14:45)
[2017-08-21 15:09] VITALS: BP 115/50
[2017-08-21] MEDS: SODIUM CHLORIDE 0.45% 1,000 ML IV SCH (17:00)
[2017-08-21 19:21] LABS: FOLATE SERUM 18.3 ng/mL (5.4-)
[2017-08-21 19:39] VITALS: BP 137/50
[2017-08-21 20:02] LABS: GLUCOMETER DEV NAME(LOC) 5S 2N; GLUCOSE,POINT OF CARE 88 MG/DL (70-110)
[2017-08-21] MEDS: ATORVASTATIN CALCIUM 40 MG TABLET PO SCH (20:02)
[2017-08-21] MEDS: LevETIRAcetam 500 MG TABLET PO SCH (20:03)
[2017-08-21] MEDS: DiphenhydrAMINE HCL 25 MG CAPSULE PO SCH (20:03)
[2017-08-21] MEDS: RANOLAZINE 500 MG SR TABLET PO SCH (20:03)
[2017-08-21] MEDS: DOXAZOSIN MESYLATE 2 MG TABLET PO SCH (20:03)
[2017-08-21] MEDS: DOCUSATE SODIUM 100 MG CAPSULE PO SCH (20:03)
[2017-08-21] MEDS: ATENOLOL 100 MG TABLET PO SCH (20:03)
[2017-08-21] MEDS: LUBIPROSTONE 24 MCG CAPSULE PO SCH (20:03)
[2017-08-22] VITALS (7 sets, daily range): BP systolic 127–159; BP diastolic 48–83
[2017-08-22 06:19] LABS: CALCIUM, TOTAL 8.4 mg/dL (8.8-10.5); CREATININE 3.49 mg/dL (0.60-1.30); MAGNESIUM 1.4 mg/dL (1.80-2.40); PHOSPHORUS 4.6 mg/dL (2.5-4.9); POTASSIUM 4.5 mmol/L (3.5-5.1)
[2017-08-22] MEDS ORDERED: PANTOPRAZOLE SODIUM 40 MG DR TABLET PO SCH (06:30)
[2017-08-22 07:01] LABS: % IRON SATURATION 19.3 % (30-44)
[2017-08-22] MEDS: ASPIRIN 81 MG CHEWABLE TABLET PO SCH (07:43)
[2017-08-22] MEDS: ALLOPURINOL 300 MG TABLET PO SCH (07:43)
[2017-08-22] MEDS: VITAMIN B COMP/VIT C/FOLIC ACID CAPSULE PO SCH (07:43)
[2017-08-22] MEDS: FERROUS SULFATE 325 MG EC TABLET PO SCH (07:43)
[2017-08-22] MEDS: CHOLECALCIFEROL (VIT D3) 1,000 UNITS TABLET PO SCH (07:43)
[2017-08-22] MEDS: DOCUSATE SODIUM 100 MG CAPSULE PO SCH (07:43)
[2017-08-22] MEDS: RANOLAZINE 500 MG SR TABLET PO SCH ×2 (07:46→21:35)
[2017-08-22] MEDS: LUBIPROSTONE 24 MCG CAPSULE PO SCH (07:46)
[2017-08-22] MEDS: LevETIRAcetam 500 MG TABLET PO SCH ×2 (07:48→21:35)
[2017-08-22] MEDS ORDERED: MAGNESIUM SULFATE 1 GM in DEXTROSE 5%-WATER 50 ML IV ONE (08:00)
[2017-08-22] MEDS: SODIUM CHLORIDE 0.45% 1,000 ML IV SCH (12:38)
[2017-08-22] MEDS ORDERED: ONDANSETRON HCL 4 MG/2 ML VIAL IVP PRN (14:45)
[2017-08-22] MEDS: PIPERACILLIN SODIUM/TAZOBACTAM 2.25 GM in DEXTROSE 5%-WATER 50 ML IV SCH ×2 (15:35→21:43)
[2017-08-22] MEDS: SOD FERRIC GLUC COMPLX/SUCROSE 125 MG in SODIUM CHLORIDE 0.9% 100 ML IV SCH (16:22)
[2017-08-22] MEDS: LACTOBACILLUS ACIDOPHILUS/BULGARICUS GRANULES PACKET PO SCH ×2 (16:22→21:36)
[2017-08-22] MEDS: HEPARIN SODIUM,PORCINE 5,000 UNITS/ML VIAL SQ SCH (16:23)
[2017-08-22 18:00] LABS: C.DIFF GDH ANTIGEN, Stool Negative (Negative); C.DIFF TOXINS A&B, Stool Negative (Negative)
[2017-08-22] MEDS ORDERED: LOPERAMIDE HCL 2 MG CAPSULE PO PRN (19:00)
[2017-08-22 19:32] LABS: CREATININE,URINE RANDOM 46.2 mg/dL (30.0-125.0)
[2017-08-22] MEDS: DiphenhydrAMINE HCL 25 MG CAPSULE PO SCH (21:35)
[2017-08-22] MEDS: ATENOLOL 100 MG TABLET PO SCH (21:35)
[2017-08-22] MEDS: ATORVASTATIN CALCIUM 40 MG TABLET PO SCH (21:35)
[2017-08-22] MEDS: DOXAZOSIN MESYLATE 2 MG TABLET PO SCH (21:36)
[2017-08-23] VITALS (7 sets, daily range): BP systolic 115–149; BP diastolic 44–71
[2017-08-23] MEDS: HEPARIN SODIUM,PORCINE 5,000 UNITS/ML VIAL SQ SCH ×4 (00:31→23:24)
[2017-08-23] MEDS: PIPERACILLIN SODIUM/TAZOBACTAM 2.25 GM in DEXTROSE 5%-WATER 50 ML IV SCH ×4 (04:15→23:24)
[2017-08-23 07:22] LABS: CALCIUM, TOTAL 8.7 mg/dL (8.8-10.5); CREATININE 2.95 mg/dL (0.60-1.30); MAGNESIUM 1.7 mg/dL (1.80-2.40); PHOSPHORUS 4.2 mg/dL (2.5-4.9); POTASSIUM 4.3 mmol/L (3.5-5.1)
[2017-08-23] MEDS ORDERED: MAGNESIUM SULFATE 0.5 GM in DEXTROSE 5%-WATER 50 ML IV ONE (08:15)
[2017-08-23] MEDS: ACETAMINOPHEN 325 MG TABLET PO PRN (08:42)
[2017-08-23] MEDS: RANOLAZINE 500 MG SR TABLET PO SCH ×2 (08:43→20:24)
[2017-08-23] MEDS: LACTOBACILLUS ACIDOPHILUS/BULGARICUS GRANULES PACKET PO SCH ×3 (08:43→20:24)
[2017-08-23] MEDS: FERROUS SULFATE 325 MG EC TABLET PO SCH (08:43)
[2017-08-23] MEDS: ALLOPURINOL 300 MG TABLET PO SCH (08:43)
[2017-08-23] MEDS: VITAMIN B COMP/VIT C/FOLIC ACID CAPSULE PO SCH (08:43)
[2017-08-23] MEDS: CHOLECALCIFEROL (VIT D3) 1,000 UNITS TABLET PO SCH (08:43)
[2017-08-23] MEDS: SODIUM CHLORIDE 0.45% 1,000 ML IV SCH (08:44)
[2017-08-23] MEDS: LevETIRAcetam 500 MG TABLET PO SCH ×2 (08:44→20:24)
[2017-08-23] MEDS: ASPIRIN 81 MG CHEWABLE TABLET PO SCH (08:44)
[2017-08-23] MEDS: PANTOPRAZOLE SODIUM 40 MG DR TABLET PO SCH (08:44)
[2017-08-23] MEDS: SODIUM BICARBONATE 650 MG TABLET PO SCH ×3 (09:04→20:24)
[2017-08-23] MEDS: EPOETIN ALFA 10,000 UNITS/ML VIAL SQ SCH (09:33)
[2017-08-23 15:37] LABS: BASOPHILS % (AUTO) 0.9 % (0.0-2.0); EOSINOPHILS % (AUTO) 2.9 % (1.0-6.0); HEMOGLOBIN 7.7 g/dL (13.5-17.5); LYMPHOCYTES # (AUTO) 1.5 K/uL (1.0-4.8); LYMPHOCYTES % (AUTO) 26.2 % (22.0-44.0); MEAN CORPUSCULAR HEMOGLOBIN 32.1 pg (26.0-34.0); MEAN CORPUSCULAR VOLUME 100 fL (80-100); NEUTROPHILS # (AUTO) 2.9 K/uL (1.8-7.7); PLATELET COUNT (AUTO) 148 K/uL (150-450); RED BLOOD CELL COUNT(AUTO) 2.39 MIL/uL (4.50-5.90); RED CELL DISTRIBUTION WIDTH 19.6 % (11.5-14.5)
[2017-08-23] MEDS: SOD FERRIC GLUC COMPLX/SUCROSE 125 MG in SODIUM CHLORIDE 0.9% 100 ML IV SCH (17:56)
[2017-08-23] MEDS: ATENOLOL 100 MG TABLET PO SCH (20:24)
[2017-08-23] MEDS: DiphenhydrAMINE HCL 25 MG CAPSULE PO SCH (20:24)
[2017-08-23] MEDS: ATORVASTATIN CALCIUM 40 MG TABLET PO SCH (20:25)
[2017-08-23] MEDS: DOXAZOSIN MESYLATE 2 MG TABLET PO SCH (20:25)
[2017-08-24] MEDS: GuaiFENesin/D-METHORPHAN [SUGAR-FREE] 200-20MG/10 ML SYRUP UDCUP PO PRN ×2 (01:03→23:25)
[2017-08-24 04:33] VITALS: BP 140/55
[2017-08-24] MEDS: PIPERACILLIN SODIUM/TAZOBACTAM 2.25 GM in DEXTROSE 5%-WATER 50 ML IV SCH ×4 (04:53→21:13)
[2017-08-24] MEDS: SODIUM CHLORIDE 0.45% 1,000 ML IV SCH ×2 (04:53→23:26)
[2017-08-24 06:34] LABS: CALCIUM, TOTAL 8.7 mg/dL (8.8-10.5); CREATININE 2.93 mg/dL (0.60-1.30); MAGNESIUM 1.7 mg/dL (1.80-2.40); PHOSPHORUS 4.8 mg/dL (2.5-4.9); POTASSIUM 4.6 mmol/L (3.5-5.1)
[2017-08-24 07:56] VITALS: BP 146/62
[2017-08-24] MEDS: HEPARIN SODIUM,PORCINE 5,000 UNITS/ML VIAL SQ SCH ×3 (08:00→23:25)
[2017-08-24] MEDS: ASPIRIN 81 MG CHEWABLE TABLET PO SCH (08:26)
[2017-08-24] MEDS: LevETIRAcetam 500 MG TABLET PO SCH ×2 (08:26→21:11)
[2017-08-24] MEDS: PANTOPRAZOLE SODIUM 40 MG DR TABLET PO SCH (08:26)
[2017-08-24] MEDS: LACTOBACILLUS ACIDOPHILUS/BULGARICUS GRANULES PACKET PO SCH ×3 (08:26→21:11)
[2017-08-24] MEDS: FERROUS SULFATE 325 MG EC TABLET PO SCH (08:26)
[2017-08-24] MEDS: VITAMIN B COMP/VIT C/FOLIC ACID CAPSULE PO SCH (08:26)
[2017-08-24] MEDS: SODIUM BICARBONATE 650 MG TABLET PO SCH ×2 (08:27→21:11)
[2017-08-24] MEDS: RANOLAZINE 500 MG SR TABLET PO SCH ×2 (08:27→21:11)
[2017-08-24] MEDS: ALLOPURINOL 300 MG TABLET PO SCH (08:28)
[2017-08-24] MEDS: CHOLECALCIFEROL (VIT D3) 1,000 UNITS TABLET PO SCH (08:28)
[2017-08-24 11:51] VITALS: BP 114/49
[2017-08-24] MEDS ORDERED: MAGNESIUM SULFATE 2 GM in DEXTROSE 5%-WATER 50 ML IV ONE (12:30)
[2017-08-24 15:35] VITALS: BP 143/71
[2017-08-24] MEDS: SOD FERRIC GLUC COMPLX/SUCROSE 125 MG in SODIUM CHLORIDE 0.9% 100 ML IV SCH (16:35)
[2017-08-24 19:26] VITALS: BP 152/66
[2017-08-24] MEDS: ATORVASTATIN CALCIUM 40 MG TABLET PO SCH (21:11)
[2017-08-24] MEDS: DiphenhydrAMINE HCL 25 MG CAPSULE PO SCH (21:11)
[2017-08-24] MEDS: ATENOLOL 100 MG TABLET PO SCH (21:11)
[2017-08-24] MEDS: DOXAZOSIN MESYLATE 2 MG TABLET PO SCH (21:12)
[2017-08-24] MEDS: ACETAMINOPHEN 325 MG TABLET PO PRN ×2 (21:12→23:27)
[2017-08-25 00:12] VITALS: BP 124/57
[2017-08-25] MEDS: PIPERACILLIN SODIUM/TAZOBACTAM 2.25 GM in DEXTROSE 5%-WATER 50 ML IV SCH ×3 (04:32→15:24)
[2017-08-25 05:19] VITALS: BP 142/61
[2017-08-25 07:42] VITALS: BP 146/67
[2017-08-25 08:05] LABS: CALCIUM, TOTAL 8.8 mg/dL (8.8-10.5); CREATININE 2.85 mg/dL (0.60-1.30)
[2017-08-25 08:20] LABS: URIC ACID 6.4 mg/dL (2.6-7.2)
[2017-08-25] MEDS: LevETIRAcetam 500 MG TABLET PO SCH (08:34)
[2017-08-25] MEDS: FERROUS SULFATE 325 MG EC TABLET PO SCH (08:34)
[2017-08-25] MEDS: CHOLECALCIFEROL (VIT D3) 1,000 UNITS TABLET PO SCH (08:35)
[2017-08-25] MEDS: PANTOPRAZOLE SODIUM 40 MG DR TABLET PO SCH (08:35)
[2017-08-25] MEDS: HEPARIN SODIUM,PORCINE 5,000 UNITS/ML VIAL SQ SCH ×2 (08:35→15:25)
[2017-08-25] MEDS: VITAMIN B COMP/VIT C/FOLIC ACID CAPSULE PO SCH (08:36)
[2017-08-25] MEDS: RANOLAZINE 500 MG SR TABLET PO SCH (08:36)
[2017-08-25] MEDS: SODIUM BICARBONATE 650 MG TABLET PO SCH (08:36)
[2017-08-25] MEDS: LACTOBACILLUS ACIDOPHILUS/BULGARICUS GRANULES PACKET PO SCH ×2 (08:36→15:25)
[2017-08-25] MEDS: ASPIRIN 81 MG CHEWABLE TABLET PO SCH (08:36)
[2017-08-25] MEDS: ALLOPURINOL 300 MG TABLET PO SCH (08:37)
[2017-08-25] MEDS: EPOETIN ALFA 10,000 UNITS/ML VIAL SQ SCH (08:43)
[2017-08-25] MEDS ORDERED: SOD FERRIC GLUC COMPLX/SUCROSE 125 MG in SODIUM CHLORIDE 0.9% 100 ML IV SCH (09:15)
[2017-08-25 11:17] VITALS: BP 128/51
[2017-08-25] MEDS ORDERED: BISACODYL 10 MG RECTAL RECTAL SUPPOSITORY PR PRN (13:45)
[2017-08-25 14:09] LABS: BASOPHILS % (AUTO) 0.8 % (0.0-2.0); EOSINOPHILS % (AUTO) 3.7 % (1.0-6.0); HEMATOCRIT 23.8 % (41-53); HEMOGLOBIN 7.9 g/dL (13.5-17.5); LYMPHOCYTES # (AUTO) 1.2 K/uL (1.0-4.8); LYMPHOCYTES % (AUTO) 28.7 % (22.0-44.0); MEAN CORPUSCULAR HEMOGLOBIN 32.9 pg (26.0-34.0); MEAN CORPUSCULAR HGB CONC 33.3 G/dL (31.0-37.0); MEAN CORPUSCULAR VOLUME 99 fL (80-100); MONOCYTES # (AUTO) 0.7 K/uL (0.1-1.0); MONOCYTES % (AUTO) 17.7 % (2.0-9.0); NEUTROPHILS % (AUTO) 49.1 % (40.0-70.0); PLATELET COUNT (AUTO) 123 K/uL (150-450); RED BLOOD CELL COUNT(AUTO) 2.41 MIL/uL (4.50-5.90); RED CELL DISTRIBUTION WIDTH 19.2 % (11.5-14.5)
[2017-08-25 14:30] LABS: CREATININE 2.76 mg/dL (0.60-1.30); POTASSIUM 4.1 mmol/L (3.5-5.1)
[2017-08-25 14:37] LABS: ALBUMIN 1.7 g/dL (3.4-5.0); BILIRUBIN,TOTAL 0.5 mg/dL (0.1-1.0); TOTAL PROTEIN, SERUM 4.9 g/dL (6.4-8.2)
[2017-08-25 15:30] VITALS: BP 146/61
[2017-08-25] MEDS: SOD FERRIC GLUC COMPLX/SUCROSE 125 MG in SODIUM CHLORIDE 0.9% 100 ML IV SCH (16:00)
[2017-08-25] MEDS ORDERED: ZOSY225FZ IV (16:46)
[2017-08-25] MEDS ORDERED: FOLI1CAP2 PO (16:46)
[2017-08-26] MEDS ORDERED: EPOETIN ALFA 10,000 UNITS/ML VIAL SQ SCH (09:00)
== END 2017-08-25 17:20 | DRG 871 ==
LOC: EMS 02:11 → 5S 09:21 → 5N 08-22 18:49
PROVIDERS: ADMIT Hospitalist; ATTEND Hospitalist
DX: A41.9 Sepsis, unspecified organism (principal); J18.9 Pneumonia, unspecified organism; N17.9 Acute kidney failure, unspecified; E44.0 Moderate protein-calorie malnutrition; E11.22 Type 2 diabetes mellitus with diabetic chronic kidney disease; N18.6 End stage renal disease; N39.0 Urinary tract infection, site not specified; Z99.2 Dependence on renal dialysis; E78.5 Hyperlipidemia, unspecified; G40.909 Epilepsy, unspecified, not intractable, without status epilepticus; M10.9 Gout, unspecified; D64.9 Anemia, unspecified; E11.65 Type 2 diabetes mellitus with hyperglycemia; E55.9 Vitamin D deficiency, unspecified; E78.00 Pure hypercholesterolemia, unspecified; E86.0 Dehydration; K59.00 Constipation, unspecified; Z86.73 Personal history of transient ischemic attack (TIA), and cerebral infarction without residual deficits; Z87.891 Personal history of nicotine dependence; Z68.20 Body mass index [BMI] 20.0-20.9, adult; I12.9 Hypertensive chronic kidney disease with stage 1 through stage 4 chronic kidney disease, or unspecified chronic kidney disease
CPT/HCPCS: 51702; 71046; 82570; 82607; 82746; 82962; 83540; 83550; 83605; 83735; 84100; 84300; 84540; 84550; 87040; 87081; 87086; 87324; 87449; 87804; 92610; 93005; 96365; 99291; J0885; J1644; J2405; J2543; J2916; J3475; J7050; J7060